=== PATIENT | female | born 1950 | race Hispanic/Latino ===

== ENCOUNTER → 2023-04-13 | Outpatient (CLI) | payer MEDICARE | END | disposition home or self-care (01) | LOC: RAH 09:12 | PROVIDERS: ATTEND Physical Medicine & Rehabilitation | DX: M43.16 Spondylolisthesis, lumbar region (principal); M48.061 Spinal stenosis, lumbar region without neurogenic claudication; M54.51 Vertebrogenic low back pain; M25.561 Pain in right knee; M25.562 Pain in left knee; M48.07 Spinal stenosis, lumbosacral region | CPT/HCPCS: 72114 ==